=== PATIENT | male | born 1990 | race Hispanic/Latino ===

== ENCOUNTER 2023-12-07 15:43 | Emergency (ER) | payer OTHER, SELFPAY ==
[2023-12-07 15:55] VITALS: BP 148/93; PULSE 104; RESP 16; TEMP 37.6; O2SAT 99
--- NOTE | 2023-12-07 16:04 | ED.URI ---
HPI - URI/Sore Throat General Chief Complaint: Upper Respiratory Infection Stated Complaint: Sore Throat/Fever Time Seen by Provider: 12/07/23 16:05 Source: patient, RN notes reviewed and old records reviewed Mode of arrival: ambulatory Limitations: no limitations History of Present Illness HPI Narrative: Patient with 2 day history of sore throat, began with fever today. He denies any runny nose. No difficulty swallowing, although this does increase his pain level. He is able to manage own secretions and speak normally. He has been taking Tylenol and ibuprofen with fair relief. He reports a slight headache, no upset stomach. Voices no other concerns or complaints at this time. Related Data Home Medications Medication Instructions Recorded Confirmed fenofibrate micronized 134 mg 134 mg PO DAILY 12/07/23 12/07/23 capsule lisinopril 20 mg tablet 20 mg PO DAILY 12/07/23 12/07/23 metformin 1,000 mg tablet 1,000 mg PO BID 12/07/23 12/07/23 semaglutide 2 mg/dose (8 mg/3 mL) 2 mg subcut WE 12/07/23 12/07/23 subcutaneous pen injector (Ozempic) Allergies Allergy/AdvReac Type Severity Reaction Status Date / Time Penicillins Allergy Rash Verified 12/07/23 16:07 Review of Systems Review of Systems: All systems reviewed & are unremarkable except as noted in HPI and below Constitutional: Constitutional: Reports as per HPI, Reports no additional constitutional complaints, Reports fever(s) and Reports headache(s) ENT: Reports system reviewed and no additional complaints, except as documented, Denies nasal discharge, Denies nasal obstruction and Reports sore throat Cardiovascular: Cardiovascular: Reports no additional cardiovascular complaints Respiratory: Respiratory: Reports no additional respiratory complaints Gastrointestinal: Gastrointestinal: Reports no additional gastrointestinal complaints PMFSH Comments At the time of my signature, I reviewed and agree with the nursing past medical, surgical, social, and family history. There is no relevant family history pertinent to the patient complaint. Exam Const: General: cooperative, no acute distress, alert and awake Orientation/consciousness: oriented to person, oriented to place and oriented to time HENMT: Head: normal to inspection Ears: TM's normal bilaterally Mouth: Yes moist mucous membranes Teeth and gingiva: dentition normal Throat: abnormal tonsil bilateral erythema, exudates and hypertrophy 2+ Resp: Effort & Inspection: normal respiratory effort and able to speak in complete sentences Auscultation: clear to auscultation bilaterally, no crackles, no rales, no rhonchi and no wheezes Cardio: Palpation: normal PMI Rate: regular rate Rhythm: regular rhythm Heart sounds: S1 normal heart sound present and S2 normal heart sound present Neuro: General: oriented to person, oriented to place and oriented to time Cranial nerves: Yes CN's II-XII intact bilaterally Psych: Appearance: grossly normal Thought process: Normal thought process present Insight: Good insight present (Psych) Judgement: Good judgement present (Psych) Course Course Level of Care: Express Care Visit Vital Signs Vital signs: Vital Signs Temperature 99.7 F H 12/07/23 15:55 Pulse Rate 104 H 12/07/23 15:55 Respiratory Rate 16 12/07/23 15:55 Blood Pressure 148/93 H 12/07/23 15:55 Pulse Oximetry 99 12/07/23 15:55 Oxygen Delivery Room Air 12/07/23 15:55 Temperature 99.7 F H 12/07/23 15:55 Pulse Rate 104 H 12/07/23 15:55 Respiratory Rate 16 12/07/23 15:55 Blood Pressure 148/93 H 12/07/23 15:55 Pulse Oximetry 99 12/07/23 15:55 Oxygen Delivery Room Air 12/07/23 15:55 Reviewed MDM - URI/Sore Throat MDM Narrative Medical decision making narrative: Patient nontoxic appearing, able to manage own secretions well. He is aware that he needs to take his blood pressure medication for his elevated blood pressure. He is stable for discharge with p.o. antibi
[2023-12-07 16:28] LABS: EDSTREPNEGPOS1 Positive
== END 2023-12-07 16:16 | disposition home or self-care (01) ==
PROVIDERS: Emergency Provider Nurse Practitioner Family
DX: J02.0 Streptococcal pharyngitis (principal); E78.00 Pure hypercholesterolemia, unspecified; I10 Essential (primary) hypertension; E11.9 Type 2 diabetes mellitus without complications
CPT/HCPCS: 87880; 99203; G0463